=== PATIENT | female | born 1990 | race Caucasian/White ===

== ENCOUNTER → 2022-04-26 | Day surgery (SDC) | payer OTHER ==
[~2022-04-26] MED LIST: ALLEGRA-D 24 H1 EACH PO; APRISO0.375 GM PO; IMITREX100 MG PO; LAMOTRIGINE150 MG PO; LEXAPRO10 MG PO; MINIPRESS1 MG PO; NORCO 5-325 TA1 EACH PO; REMERON15 MG PO; SEROQUEL50 MG PO; SPRINTEC 28 DA1 EACH PO
== END | disposition home or self-care (01) ==
LOC: OR 06:59
DX: K52.9 Noninfective gastroenteritis and colitis, unspecified (principal); K63.3 Ulcer of intestine; K50.00 Crohn's disease of small intestine without complications; K64.4 Residual hemorrhoidal skin tags; E66.3 Overweight; Z68.26 Body mass index [BMI] 26.0-26.9, adult; Z88.5 Allergy status to narcotic agent; Z87.891 Personal history of nicotine dependence
CPT/HCPCS: 84703; J2704